=== PATIENT | female | born 1980 | race Caucasian/White ===

== ENCOUNTER 2021-10-22 21:03 | Emergency (ER) | payer OTHER ==
[2021-10-22 21:17] VITALS: BP 143/78; TEMP 101.1; BMI 23.1
[2021-10-22 23:29] VITALS: PULSE 98
[2021-10-22] MEDS ORDERED: ACETAMINOPHEN 500 MG TABLET (FP) PO ONE (23:29)
[2021-10-22] MEDS ORDERED: ACETAMINOPHEN 325 MG TABLET (FP) ONE (23:47)
== END 2021-10-22 23:59 | disposition home or self-care (01) ==
LOC: JER 21:03
DX: U07.1 COVID-19 (principal)
CPT/HCPCS: 0241U-QW; 99283-25

== ENCOUNTER 2021-11-12 16:30 | Emergency (ER) | payer OTHER ==
[2021-11-12 16:55] VITALS: BP 114/72; PULSE 75; TEMP 99.4; BMI 51.0
== END 2021-11-12 17:17 | disposition left against medical advice (07) ==
LOC: JER 16:30
DX: T78.40XA Allergy, unspecified, initial encounter (principal)
CPT/HCPCS: 99283-25